=== PATIENT | male | born 2000 | race Caucasian/White ===

== ENCOUNTER → 2021-07-24 | Outpatient (CLI) | payer BC ==
--- NOTE | 2021-07-24 12:16 | US ---
EXAMINATION TYPE: US liver DATE OF EXAM: 07/24/2021 COMPARISON: CT 2010 CLINICAL HISTORY: R94.5 abnormal liver function test. EXAM MEASUREMENTS: Liver Length: 19.1 cm Gallbladder Wall: 0.2 cm CBD: 0.5 cm Right Kidney: 11.0x5.9x4.9 cm Pancreas: wnl Liver: Increased attenuation, decreased visualization of vessels suggestive of fatty infiltrate Gallbladder: wnl Evidence for sonographic Villar's sign: No CBD: wnl Right Kidney: Parapelvic cyst measuring 2.0x1.4x1.7cm Very difficult exam due to patient body habitus. IMPRESSION: Some limitations the exam. Consider hepatic steatosis, hepatocellular disease, there is h epatomegaly
== END | disposition home or self-care (01) ==
LOC: RADUSWWP 09:00
PROVIDERS: ATTEND Internal Medicine
DX: R16.0 Hepatomegaly, not elsewhere classified (principal)
CPT/HCPCS: 76705

== ENCOUNTER → 2021-08-20 | Outpatient (CLI) | payer BC ==
[2021-08-20 23:08] LABS: INR 0.95 (0.90-1.11); Prothrombin Time 10.4 sec (9.9-11.9)
[2021-08-21 04:18] LABS: Protein, Total 7.8 g/dL (6.2-8.2)
[2021-08-21 05:03] LABS: Hepatitis A Antibody IgM Nonreactive (Nonreactive); Hepatitis C IgG Antibody Nonreactive (Nonreactive)
[2021-08-21 05:04] LABS: Hepatitis B Core IgM Nonreactive (Nonreactive); Hepatitis B Surface Antigen Nonreactive (Nonreactive)
[2021-08-21 05:07] LABS: % Iron Saturation 23.21 (15.00-50.00); C Reactive Protein 0.7 mg/dL (0.00-0.80)
[2021-08-21 05:09] LABS: Ceruloplasmin 25.4 mg/dL (20.0-60.0)
[2021-08-21 06:47] LABS: Alpha Fetoprotein, Tumor Mkr <1.82 ng/mL (0.00-7.90)
[2021-08-21 14:40] LABS: Albumin 4.25 g/dL (3.80-4.90); Gamma Globulin 1.22 g/dL (0.70-1.50)
[2021-08-22 15:28] LABS: Gliadin AB IgA, Deaminated NEGATIVE (NEGATIVE); Gliadin AB IgA, Unit 0.2 U/mL; Gliadin AB IgG, Deaminated NEGATIVE (NEGATIVE)
== END | disposition home or self-care (01) ==
LOC: LABWHC1 14:13
PROVIDERS: ATTEND Internal Medicine Gastroenterology
DX: K76.0 Fatty (change of) liver, not elsewhere classified (principal); K52.9 Noninfective gastroenteritis and colitis, unspecified
CPT/HCPCS: 36415; 80074; 82103; 82105; 82390; 82728; 83516; 83540; 83550; 84165; 85610; 85652; 86038; 86039; 86140

== ENCOUNTER → 2024-10-11 | Outpatient (CLI) | payer BC ==
--- NOTE | 2024-10-12 16:23 | US ---
EXAMINATION TYPE: US abdomen complete DATE OF EXAM: 10/11/2024 COMPARISON: CLINICAL INDICATION: Male, 24 years old with history of R30.0 DYSURIA; TECHNIQUE: Grayscale and color Doppler imaging of the abdomen was performed. FINDINGS: EXAM MEASUREMENTS: Liver Length: 18.6 cm Gallbladder Wall: 0.2 cm CBD: 0.6 cm, color Doppler imaging was utilized to isolate the common bile duct for measurement. Spleen: 14.6 cm Right Kidney: 10.9 x 4.8 x 5.6 cm Left Kidney: 11.5 x 4.4 x 5.3 cm [employer] NOTES: Suboptimal exam due to patient body habitus Pancreas: Tail obscured by overlying bowel gas Liver: Increased attenuation, decreased visualization of vessels suggestive of fatty infiltrate. En larged in size. Gallbladder: Appears compacted with echogenic foci, GB lumen not seen Evidence for sonographic Villar's sign: neg CBD: Limited visualization Spleen: Enlarged in size Right Kidney: Pelvic hypoechoic area = 1.6 x 1.3 x 1.3 cm Left Kidney: No hydronephrosis or masses seen Upper IVC: wnl Abd Aorta: No AAA seen at time of scan IMPRESSION: 1. Mild fatty infiltration liver. 2. Hepatosplenomegaly [facility], , 10/12/2024 4:20 PM
== END | disposition home or self-care (01) ==
LOC: RADUSWWP 07:56
PROVIDERS: ATTEND Internal Medicine
DX: K76.0 Fatty (change of) liver, not elsewhere classified (principal); R30.0 Dysuria; R16.2 Hepatomegaly with splenomegaly, not elsewhere classified
CPT/HCPCS: 76700